=== PATIENT | female | born 1950 | race Caucasian/White ===

== ENCOUNTER 2017-02-07 11:14 | Inpatient (IN) | payer OTHER ==
[~2017-02-07] VITALS: Ht 160 cm; Wt 63.6 kg
[~2017-02-07 11:14] MED LIST: APR10 PO; ASPIR 8181 MG PO; ASPIRIN81 MG PO; BACTRIM1 TAB PO; CARVEDILOL12.5 M1 PO; CLINDAMYCIN HC300 MG PO; CLONIDINE HCL0.1 MG PO; FISH OIL1 CAP PO; FOLIC ACID1 MG PO; FOSRENOL500 MG PO; HUMALOG100 U/ML SC; KEFLEX500 MG PO; LAC PO; LANTUS SOLOS100 U/M1 SQ; LISINOPRIL40 MG PO; MASON NATURAL1200 MG PO; NEU300 PO; NIFEDIPINE ER30 MG PO; NIFEDIPINE ER60 MG PO; NIFEDIPINE30 MG PO; NORCO1 TA2 PO; PRAVACHOL10 MG PO; PRI20 PO; PRO30 PO; PRO60 PO; PROCARDIA XL30 MG PO; SENSIPAR30 M1 PO; SINEMET 10-1001 TAB; SINEMET 25-1001 TAB PO; VITAMIN D32000 I2 PO; [UNRECOGNIZED DRUG - OTHER] PO; [UNRECOGNIZED DRUG - OTHER] PO
[2017-02-07 11:55] LABS: BASOPHIL % 0.3 % (0-2)
[2017-02-07 11:58] LABS: PLATELET COUNT 237 x10^3mcL (130-400); RED CELL DISTRIBUTION WIDTH 14.8 % (11.5-14.5)
[2017-02-07 12:15] LABS: BILIRUBIN TOTAL 0.4 mg/dL (0.20-1.00); CARBON DIOXIDE 34.8 mmol/L (21-32); POTASSIUM SERUM 4.5 mmol/L (3.5-5.1); TOTAL PROTEIN, SERUM 7.4 g/dL (6.4-8.2)
[2017-02-07 12:20] LABS: ALBUMIN 2.8 g/dL (3.4-5.0); CREATININE SERUM 6.8 mg/dL (0.6-1.0)
[2017-02-07] MEDS ORDERED: FOSRENOL1000 M1 PO (13:12)
[2017-02-07] MEDS ORDERED: NIFEDIPINE ER90 M2 PO (13:12)
[2017-02-07] MEDS ORDERED: CARVEDILOL12.5 M1 PO (13:13)
[2017-02-07] MEDS ORDERED: NATURE'S BLEND F1 MG PO (13:13)
[2017-02-07] MEDS ORDERED: CATAPRES0.1 MG PO (13:13)
[2017-02-07] MEDS ORDERED: RENA-VITE RX1 TAB PO (13:13)
[2017-02-07] MEDS ORDERED: SINEMET 25-1001 TAB (13:14)
[2017-02-07] MEDS ORDERED: SENSIPAR30 M1 PO (13:14)
[2017-02-07] MEDS ORDERED: ASPIR 8181 MG PO (13:14)
[2017-02-07] MEDS ORDERED: HYDRALAZINE HCL25 MG PO (13:14)
[2017-02-07 13:15] LABS: MAGNESIUM 2.1 mg/dL (1.8-2.4); PHOSPHOROUS 4.9 mg/dL (2.5-4.9)
[2017-02-07] MEDS ORDERED: LANTUS SOLOS100 U/M1 SQ (13:15)
[2017-02-07] MEDS ORDERED: AFREZZA SQ (13:15)
[2017-02-07 13:18] LABS: CHOLESTEROL/HDL RATIO 6.2
[2017-02-07 13:23] LABS: T3 TOTAL 0.75 ng/mL
[2017-02-07 13:42] LABS: FREE T4 0.82 ng/dL (0.76-1.46); T4(THYROXINE) 5.3 ug/dL (4.7-13.3)
[2017-02-07 13:45] VITALS: BP 125/47
[2017-02-07 14:50] VITALS: BP 125/47
[2017-02-07 17:36] VITALS: BP 127/52
[2017-02-07 21:45] VITALS: BP 129/64
[2017-02-07 21:46] VITALS: BP 126/54
[2017-02-08 00:50] VITALS: BP 140/63
[2017-02-08 05:54] VITALS: BP 125/50
[2017-02-08 06:08] LABS: BASOPHIL % 0.4 % (0-2); PLATELET COUNT 202 x10^3mcL (130-400)
[2017-02-08 06:26] LABS: CALCIUM 9.1 mg/dL (8.5-10.1); CARBON DIOXIDE 30.8 mmol/L (21-32); POTASSIUM SERUM 4.5 mmol/L (3.5-5.1)
[2017-02-08 06:45] LABS: CREATININE SERUM 8.2 mg/dL (0.6-1.0)
[2017-02-08 07:00] LABS: RED CELL DISTRIBUTION WIDTH 14.9 % (11.5-14.5)
[2017-02-08 09:13] VITALS: BP 125/55
[2017-02-08 17:14] VITALS: BP 145/50
[2017-02-08 20:26] VITALS: BP 186/62
[2017-02-09 06:12] VITALS: BP 153/58
[2017-02-09 06:16] LABS: BASOPHIL % 0.4 % (0-2); PLATELET COUNT 223 x10^3mcL (130-400)
[2017-02-09 06:37] LABS: CALCIUM 9.2 mg/dL (8.5-10.1); CARBON DIOXIDE 27.3 mmol/L (21-32)
[2017-02-09 06:45] LABS: RED CELL DISTRIBUTION WIDTH 15.2 % (11.5-14.5)
[2017-02-09 06:50] LABS: ALBUMIN 2.5 g/dL (3.4-5.0); CREATININE SERUM 5.7 mg/dL (0.6-1.0)
[2017-02-09 09:34] VITALS: BP 111/47
[2017-02-09 14:20] VITALS: BP 110/47
[2017-02-09 18:11] VITALS: BP 112/50
[2017-02-09 21:24] VITALS: BP 127/57
[2017-02-10 05:26] VITALS: BP 109/52
[2017-02-10 06:16] LABS: BASOPHIL % 0.7 % (0-2); PLATELET COUNT 233 x10^3mcL (130-400)
[2017-02-10 06:28] LABS: CALCIUM 8.7 mg/dL (8.5-10.1); CARBON DIOXIDE 28.1 mmol/L (21-32); MAGNESIUM 2.3 mg/dL (1.8-2.4); POTASSIUM SERUM 5.2 mmol/L (3.5-5.1)
[2017-02-10 06:33] LABS: CREATININE SERUM 7.9 mg/dL (0.6-1.0)
[2017-02-10 07:20] LABS: RED CELL DISTRIBUTION WIDTH 15.1 % (11.5-14.5)
[2017-02-10 10:04] VITALS: BP 103/53
[2017-02-10 13:51] VITALS: BP 137/56
[2017-02-10 17:58] VITALS: BP 101/41
[2017-02-10 20:39] VITALS: BP 181/64
[2017-02-11 05:22] VITALS: BP 164/53
[2017-02-11 06:27] LABS: BASOPHIL % 0.4 % (0-2); PLATELET COUNT 231 x10^3mcL (130-400)
[2017-02-11 06:44] LABS: CALCIUM 8.6 mg/dL (8.5-10.1); MAGNESIUM 2.6 mg/dL (1.8-2.4); PHOSPHOROUS 6.9 mg/dL (2.5-4.9); POTASSIUM SERUM 5.4 mmol/L (3.5-5.1)
[2017-02-11 06:48] LABS: CREATININE SERUM 10.3 mg/dL (0.6-1.0)
[2017-02-11 07:01] LABS: RED CELL DISTRIBUTION WIDTH 15.1 % (11.5-14.5)
[2017-02-11] MEDS ORDERED: CAT0.1 PO (07:56)
[2017-02-11 09:26] VITALS: BP 175/55
[2017-02-11 12:07] VITALS: BP 122/58
[2017-02-11 13:14] VITALS: BP 188/68
[2017-02-11] MEDS ORDERED: NEU100 PO (14:00)
[2017-02-11] MEDS ORDERED: LAXATIVE5 M1 PO (14:00)
[2017-02-11 14:01] VITALS: BP 128/59
[2017-02-11] MEDS ORDERED: COL250 PO (14:01)
[2017-02-11] MEDS ORDERED: LAC PO (14:06)
[2017-02-11] MEDS ORDERED: CLINDAMYCIN HC300 MG PO (14:07)
[2017-02-11] MEDS ORDERED: NORCO1 TA2 PO (14:35)
[2017-02-11 17:02] VITALS: BP 126/69
== END 2017-02-11 18:55 | disposition home health service (06) | DRG 383 ==
LOC: ED 11:14 → MU 12:14 → DU 12:14 → MU 22:01
PROVIDERS: Emergency Medicine; ADMIT Family Medicine
PROC: 5A1D60Z (ICD-10-PCS; principal; 2017-02-08)
DX: L03.031 Cellulitis of right toe (principal); N17.0 Acute kidney failure with tubular necrosis; E87.2 Acidosis; I12.0 Hypertensive chronic kidney disease with stage 5 chronic kidney disease or end stage renal disease; N18.6 End stage renal disease; D68.69 Other thrombophilia; E11.22 Type 2 diabetes mellitus with diabetic chronic kidney disease; I42.2 Other hypertrophic cardiomyopathy; D63.1 Anemia in chronic kidney disease; E87.1 Hypo-osmolality and hyponatremia; E11.51 Type 2 diabetes mellitus with diabetic peripheral angiopathy without gangrene; G25.81 Restless legs syndrome; E11.621 Type 2 diabetes mellitus with foot ulcer; L97.519 Non-pressure chronic ulcer of other part of right foot with unspecified severity; E11.65 Type 2 diabetes mellitus with hyperglycemia; E11.40 Type 2 diabetes mellitus with diabetic neuropathy, unspecified; E78.5 Hyperlipidemia, unspecified; M10.9 Gout, unspecified; Z99.2 Dependence on renal dialysis; Z79.82 Long term (current) use of aspirin; Z79.4 Long term (current) use of insulin; Z83.3 Family history of diabetes mellitus; Z82.49 Family history of ischemic heart disease and other diseases of the circulatory system; Z79.899 Other long term (current) drug therapy; Z82.3 Family history of stroke
CPT/HCPCS: 82962; 83880; 84439; 97110-GP; 97116-GP; J2270; J2405; J2543; J7030; J7050; Q0092

== ENCOUNTER 2017-02-27 20:47 | Emergency (ER) | payer OTHER ==
[~2017-02-27 20:47] MED LIST changes: +AFREZZA SQ; +CAT0.1 PO; +CATAPRES0.1 MG PO; +COL250 PO; +FOSRENOL1000 M1 PO; +HYDRALAZINE HCL25 MG PO; +LAXATIVE5 M1 PO; +NATURE'S BLEND F1 MG PO; +NEU100 PO; +NIFEDIPINE ER90 M2 PO; +RENA-VITE RX1 TAB PO; +SINEMET 25-1001 TAB
[2017-02-27 21:36] LABS: BASOPHIL % 0.3 % (0-2); PLATELET COUNT 298 x10^3mcL (130-400); RED CELL DISTRIBUTION WIDTH 15.1 % (11.5-14.5)
[2017-02-27 22:05] LABS: BILIRUBIN TOTAL 0.29 mg/dL (0.20-1.00); CALCIUM 8.9 mg/dL (8.5-10.1); CARBON DIOXIDE 33.3 mmol/L (21-32); POTASSIUM SERUM 4.6 mmol/L (3.5-5.1); T4(THYROXINE) 6.6 ug/dL (4.7-13.3); TOTAL PROTEIN, SERUM 7.8 g/dL (6.4-8.2); URIC ACID 3.3 mg/dL (2.6-6.0)
[2017-02-27 22:06] LABS: ALBUMIN 2.7 g/dL (3.4-5.0)
[2017-02-27 22:07] LABS: CREATININE SERUM 5.7 mg/dL (0.6-1.0)
[2017-02-28 00:39] VITALS: BP 139/68
== END 2017-02-28 00:39 | disposition home or self-care (01) ==
LOC: ED 20:47
PROVIDERS: Emergency Medicine
DX: E11.40 Type 2 diabetes mellitus with diabetic neuropathy, unspecified (principal); L03.031 Cellulitis of right toe; E11.22 Type 2 diabetes mellitus with diabetic chronic kidney disease; I13.11 Hypertensive heart and chronic kidney disease without heart failure, with stage 5 chronic kidney disease, or end stage renal disease; N18.6 End stage renal disease; D64.9 Anemia, unspecified; E46 Unspecified protein-calorie malnutrition; Z99.2 Dependence on renal dialysis
CPT/HCPCS: 82962; 83880; J0295; J3490

== ENCOUNTER 2017-03-08 22:57 | Emergency (ER) | payer OTHER ==
[2017-03-09 00:46] VITALS: BP 144/58
== END 2017-03-09 00:46 | disposition home or self-care (01) ==
LOC: ED 22:57
DX: L97.519 Non-pressure chronic ulcer of other part of right foot with unspecified severity (principal); Z79.2 Long term (current) use of antibiotics; Z79.891 Long term (current) use of opiate analgesic; Z79.899 Other long term (current) drug therapy; I10 Essential (primary) hypertension; E11.9 Type 2 diabetes mellitus without complications
CPT/HCPCS: J1170

== ENCOUNTER 2018-02-24 17:33 | Emergency (ER) | payer OTHER ==
[~2018-02-24] VITALS: Ht 152.4 cm; Wt 64.0 kg
[2018-02-24 17:38] VITALS: Ht 152.4 cm; Wt 64.0 kg
[2018-02-24 19:35] LABS: BILIRUBIN TOTAL 0.5 mg/dL (0.20-1.00); CALCIUM 11.2 mg/dL (8.5-10.1); CARBON DIOXIDE 30.9 mmol/L (21-32); TOTAL PROTEIN, SERUM 7.6 g/dL (6.4-8.2)
[2018-02-24 19:37] LABS: ALBUMIN 3.2 g/dL (3.4-5.0)
[2018-02-24 19:38] LABS: BASOPHIL % 0.2 % (0-2); PLATELET COUNT 227 x10^3mcL (130-400)
[2018-02-24 19:39] LABS: CREATININE SERUM 5.1 mg/dL (0.6-1.0)
[2018-02-24 19:40] LABS: RED CELL DISTRIBUTION WIDTH 15.1 % (11.5-14.5)
[2018-02-24 23:00] VITALS: BP 184/73
== END 2018-02-24 23:00 | disposition home or self-care (01) ==
LOC: ED 17:33
PROVIDERS: Emergency Medicine
DX: K59.00 Constipation, unspecified (principal); I10 Essential (primary) hypertension; E11.9 Type 2 diabetes mellitus without complications; E78.00 Pure hypercholesterolemia, unspecified; Z90.49 Acquired absence of other specified parts of digestive tract
CPT/HCPCS: J1885; J2405

== ENCOUNTER 2018-10-05 18:36 | Emergency (ER) | payer OTHER ==
[~2018-10-05] VITALS: Ht 160 cm; Wt 59.9 kg
[2018-10-05 18:50] VITALS: Ht 160 cm; Wt 59.9 kg
[2018-10-05 21:54] LABS: PLATELET COUNT 207 x10^3mcL (130-400)
[2018-10-05 22:02] LABS: RED CELL DISTRIBUTION WIDTH 15.4 % (11.5-14.5)
[2018-10-05 22:07] LABS: BAND NEUTROPHIL 0 % (0-10); BASOPHIL 0 % (0-2); MONOCYTE 4 % (0-7); SEGMENTED NEUTROPHILS 54 % (37-75)
[2018-10-05 22:08] LABS: BILIRUBIN TOTAL 0.3 mg/dL (0.20-1.00); CALCIUM 9.8 mg/dL (8.5-10.1); CARBON DIOXIDE 26.7 mmol/L (21-32); POTASSIUM SERUM 4.4 mmol/L (3.5-5.1); TOTAL PROTEIN, SERUM 7.2 g/dL (6.4-8.2); rbc morphology (normal/abnorm) ABNORMAL (NORMAL)
[2018-10-05 22:10] LABS: ALBUMIN 3.2 g/dL (3.4-5.0); CREATININE SERUM 8.8 mg/dL (0.6-1.0)
[2018-10-05 23:12] VITALS: BP 160/60
== END 2018-10-05 23:12 | disposition home or self-care (01) ==
LOC: ED 18:36
PROVIDERS: Emergency Medicine
DX: R25.2 Cramp and spasm (principal); I10 Essential (primary) hypertension; E11.9 Type 2 diabetes mellitus without complications; E78.00 Pure hypercholesterolemia, unspecified; Z90.49 Acquired absence of other specified parts of digestive tract
CPT/HCPCS: J2270; Q0162

== ENCOUNTER 2020-04-09 00:02 | Inpatient (IN) | payer OTHER, MEDICARE ==
[~2020-04-09] VITALS: Ht 157.5 cm; Wt 80.7 kg
[2020-04-09 00:08] VITALS: Ht 157.5 cm; Wt 80.7 kg
[2020-04-09] MEDS ORDERED: LIPITOR40 MG PO (00:48)
[2020-04-09] MEDS ORDERED: SENSIPAR60 M1 PO (00:49)
[2020-04-09] MEDS ORDERED: LOT20 PO (00:49)
[2020-04-09] MEDS ORDERED: PLAVIX75 M1 PO (00:49)
[2020-04-09] MEDS ORDERED: GABAPENTIN100 M2 PO (00:50)
[2020-04-09] MEDS ORDERED: FOSRENOL1000 MG PO (00:50)
[2020-04-09] MEDS ORDERED: VELTASSA8.4 GM PO (00:51)
[2020-04-09 00:56] LABS: BASOPHIL % 0.3 % (0-2); PLATELET COUNT 192 x10^3mcL (130-400); RED CELL DISTRIBUTION WIDTH 14.9 % (11.5-14.5)
[2020-04-09 01:09] LABS: BILIRUBIN TOTAL 0.5 mg/dL (0.20-1.00); CALCIUM 8.7 mg/dL (8.5-10.1); CARBON DIOXIDE 31.9 mmol/L (21-32); TOTAL PROTEIN, SERUM 7.6 g/dL (6.4-8.2)
[2020-04-09 01:11] LABS: CREATININE SERUM 4.9 mg/dL (0.6-1.0)
[2020-04-09 05:07] VITALS: BP 158/66
[2020-04-09 09:25] VITALS: BP 139/45
[2020-04-09 11:44] LABS: T3 TOTAL 0.93 ng/mL
[2020-04-09 11:55] LABS: FREE T4 1.2 ng/dL (0.76-1.46); FREE THYROXINE INDEX 2.1 ug/dL (1.4-4.5); T4(THYROXINE) 5.9 ug/dL (4.7-13.3)
[2020-04-09 12:10] LABS: PHOSPHOROUS 2.2 mg/dL (2.5-4.9)
[2020-04-09 12:15] LABS: CHOLESTEROL/HDL RATIO 5.8
[2020-04-09 13:46] VITALS: BP 157/41
[2020-04-09 16:32] VITALS: BP 144/55
== END 2020-04-09 18:55 | disposition home or self-care (01) | DRG 466 ==
LOC: ED 00:02 → DU 03:02
PROVIDERS: Emergency Medicine; ADMIT Internal Medicine; ATTEND Internal Medicine
DX: T82.898A Other specified complication of vascular prosthetic devices, implants and grafts, initial encounter (principal); I12.0 Hypertensive chronic kidney disease with stage 5 chronic kidney disease or end stage renal disease; E44.0 Moderate protein-calorie malnutrition; E11.22 Type 2 diabetes mellitus with diabetic chronic kidney disease; E11.40 Type 2 diabetes mellitus with diabetic neuropathy, unspecified; E87.1 Hypo-osmolality and hyponatremia; E11.9 Type 2 diabetes mellitus without complications; D64.9 Anemia, unspecified; S40.022A Contusion of left upper arm, initial encounter; I44.7 Left bundle-branch block, unspecified; N18.6 End stage renal disease; I25.2 Old myocardial infarction; Z90.49 Acquired absence of other specified parts of digestive tract; Z79.899 Other long term (current) drug therapy; Z89.611 Acquired absence of right leg above knee; Z79.82 Long term (current) use of aspirin; Z79.4 Long term (current) use of insulin; Z83.3 Family history of diabetes mellitus; Z82.3 Family history of stroke; Z82.49 Family history of ischemic heart disease and other diseases of the circulatory system; Z68.31 Body mass index [BMI] 31.0-31.9, adult
CPT/HCPCS: 82962; 84439; G0378; J1815; J2405; J3010; J7030; Q0092; Q9967